=== PATIENT | male | born 1985 | race Two or more races ===

== ENCOUNTER 2017-04-30 22:58 | Emergency (ER) | payer MEDICAID, OTHER ==
[~2017-04-30] VITALS: Ht 170.2 cm; Wt 84.0 kg
[2017-04-30 23:00] VITALS: Ht 170.2 cm; Wt 84.0 kg
--- NOTE | 2017-05-01 00:46 | ERD ---
ER Documentation Chief Complaint Date/Time DATE: 05/01/17 TIME: 00:44 Chief Complaint pt bib family with c/o rash to face since this am now on chest, -resp probl HPI 31-year-old male who presents emergency department for facial rash states since Thursday. Denies headache, dizziness, blurry vision, neck pain, throat pain, throat tightness, difficulty swallowing, chest tightness, chest pain, difficulty breathing, abdominal pain, nausea, vomiting, constipation, diarrhea, urinary symptoms, loss of bowel and bladder control, numbness or tingling sensation, recent travel, recent exposure to any illness, recent antibiotic use the last 3 months, fever, chills, recent changes in his diet, recent changes in his detergent, recent changes in their soap or laundry soap. No known drug allergies. No past medical history. Surgical history of appendectomy. Does not take any prescription medication at home. 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 Smokes 1-2 sticks of cigarettes a day denies use of alcohol, use of illegal drugs. ROS All systems reviewed and are negative except as per history of present illness. Medications Home Meds Active Scripts Prednisone* (Prednisone*) 20 Mg Tab, 40 MG PO DAILY for 4 Days, TAB Prov:SONU CHIU F 05/01/17 Diphenhydramine Hcl* (Benadryl*) 25 Mg Cap, 25 MG PO Q8 Y for ITCHING/RASH, #30 TAB Prov:UNRULY CHIUAR F 05/01/17 Allergies Allergies: Coded Allergies: No Known Allergy (Unverified , 04/30/17) PMhx/Soc History of Surgery: No Anesthesia Reaction: No Hx Neurological Disorder: No Hx Respiratory Disorders: No Hx Cardiac Disorders: No Hx Psychiatric Problems: No Hx Miscellaneous Medical Probl: No Hx Alcohol Use: No Hx Substance Use: No Hx Tobacco Use: No Smoking Status: Never smoker Physical Exam Vitals Vital Signs Date Time Temp Pulse Resp B/P Pulse Ox O2 Delivery O2 Flow Rate FiO2 05/01/17 01:28 98.7 71 16 135/81 99 Room Air 04/30/17 23:00 98.6 84 16 144/85 99 Physical Exam Const: [] Head: Atraumatic Eyes: Normal Conjunctiva ENT: Normal External Ears, Nose and Mouth. Uvula is in midline and not displaced. Tonsils are +1 bilaterally without redness and without exudates. Tolerating secretions. Patent airway. Speaks full and clear sentences. Neck: Full range of motion..~ No meningismus. Resp: Clear to auscultation bilaterally Cardio: Regular rate and rhythm, no murmurs Abd: Soft, non tender, non distended. Normal bowel sounds Skin: No petechiae. Visible rash with mild hives to face, chest, back. No vesicular lesions. Back: No midline or flank tenderness Ext: No cyanosis, or edema Neur: Awake and alert Psych: Normal Mood and Affect Results 24 hrs Current Medications Medications (Trade) Dose Ordered Sig/Wilda Route PRN Reason Start Time Stop Time Status Last Admin Dose Admin Dexamethasone (Decadron) 10 mg ONCE ONCE IM 05/01/17 01:00 05/01/17 01:01 DC 05/01/17 01:17 Diphenhydramine HCl (Benadryl) 50 mg ONCE ONCE PO 05/01/17 01:00 05/01/17 01:01 DC 05/01/17 01:17 Procedures/MDM Examination: Please see physical examination. Disease process, medical treatment was explained to the patient and family member. They verbalized understanding and agreed with the medical treatment, and follow-up care. Treatment: Decadron IM. Re-evaluation: Denies headache, dizziness, blurry vision, neck pain, shoulder pain, chest pain, back pain, abdominal pain, nausea, vomiting. No episode of emesis in the emergency department. Alert and oriented 4. Speaks full and clear sentences. Respirations even and unlabored. Lung sounds clear to auscultation. Active bowel sounds. There is no right upper/right lower/ epigastric/left upper/left lower abdominal tenderness and light and deep palpation. Negative on Rovsings sign. Negative Fede sign. Able to jump 5 times without developing right-sided abdominal pain. No peritoneal signs. Ambulatory with steady gait. No neurovascular deficits. No neurological deficits. Skin appearance has improved. Hives has decreased. Rashes has decreased. Consultation: None. Differential diagnosis: Anaphylaxis/anaphylactic reaction versus angioedema versus allergic reaction versus hives Medical decision makin-year-old male who presents emergency department for facial rash states since Thursday. Patient's complaint, patient's history about his complaint, my physical examination my reevaluation after treatment are consistent with my final diagnosis of rash/hives, allergic reaction. Medications prescribed are the following: Benadryl. Prednisone. Patient and family member are made aware of the side effects and adverse reactions of the medications prescribed. Instructed on when to seek emergent and medical attention in case allergic/anaphylactic reactions or severe side effects and or adverse reactions to medications. Patient and family member verbalized understanding. Patient instructed Instructed to follow-up with his PCP in 24-48 hours. Instructed to Call 911 for chest pain, shortness of breath. Advised to come back here in ED as soon as possible for severity of symptoms which includes but not limited to: any new symptoms; shortness of breath/difficulty of breathing; cardiovascular changes; severe gastrointestinal symptoms; signs and symptoms of bleeding and or infection; signs of compartment syndrome/neurovascular changes; neurological changes/deficits. Patient and family member verbalized understanding. Upon discharge, patient is alert and oriented x 4, speaks full and clear sentences, denies pain, has no neurological deficits, has no neurovascular deficits, difficulty of breathing. Breathing even and unlabored. Lung sounds are clear to auscultation. Not in distress. Appears comfortable. Ambulatory with steady gait. Appears satisfied with care provided here in ED. Departure Diagnosis: Primary Impression: Rash Additional Impression: Allergic reaction Condition: Stable Additional Instructions: Instructed to follow-up with his PCP in 24-48 hours. Instructed to Call 911 for chest pain, shortness of breath. Advised to come back here in ED as soon as possible for severity of symptoms which includes but not limited to: any new symptoms; shortness of breath/difficulty of breathing; cardiovascular changes; severe gastrointestinal symptoms; signs and symptoms of bleeding and or infection; signs of compartment syndrome/neurovascular changes; neurological changes/deficits. Patient and family member verbalized understanding. SONU CHIU May 01, 2017 00:46
[2017-05-01] MEDS ORDERED: BEN25 PO (00:47)
[2017-05-01] MEDS ORDERED: PRED20TA PO (00:48)
[2017-05-01] MEDS ORDERED: DIPHENHYDRAMINE 50 MG CAP PO ONE (01:00)
[2017-05-01] MEDS ORDERED: DEXAMETHASONE 10 MG/ML 1 ML INJ IM ONE (01:00)
[2017-05-01 01:28] VITALS: BP 135/81; PULSE 71; RESP 16; TEMP 98.7
== END 2017-05-01 01:30 | disposition home or self-care (01) ==
LOC: FTE 22:58
DX: R21 Rash and other nonspecific skin eruption (principal)
CPT/HCPCS: 96372; 99284; J1100

== ENCOUNTER 2019-05-18 16:15 | Emergency (ER) | payer BC, MEDICAID ==
[~2019-05-18] VITALS: Ht 172.7 cm; Wt 91.1 kg
[~2019-05-18 16:15] MED LIST: BEN25 PO; HYDR-843 PO; PRED20TA PO
[2019-05-18 16:18] VITALS: BP 149/84; PULSE 93; RESP 20; Ht 172.7 cm; Wt 91.1 kg
== END 2019-05-18 17:39 | disposition home or self-care (01) ==
LOC: FTE 16:15
DX: F41.9 Anxiety disorder, unspecified (principal)
CPT/HCPCS: 93005; Z7502